=== PATIENT | female | born 1980 | race Caucasian/White ===

== ENCOUNTER 2017-12-08 14:00 | Observation (INO) | payer OTHER ==
[2017-12-08 15:47] LABS: Absolute Monocytes 0.4 K/uL (0.1-1.3); Basophils % 0.4 % (0-1.3); Eosinophils % 0.5 % (0-4.4); Hematocrit 26.4 % (36.0-45.0); Lymphocytes % 23.2 % (15.3-44.8); MCH 32.2 pg (27.0-35.0); MCV 96.3 fL (80-100); MPV 8.2 fL (7.6-11.3); Monocytes % 5.2 % (3.3-12.3); RBC Red Blood Cell Count 2.74 M/uL (3.86-4.86)
[2017-12-08 15:53] LABS: Protime INR 1.02
[2017-12-08 16:11] LABS: ALT/SGPT 20 U/L (12-78); AST/SGOT 9 U/L (15-37); Albumin 3.9 g/dL (3.4-5.0); Alkaline Phosphatase 86 U/L (45-117); Amylase Level 44 U/L (25-115); BUN Blood Urea Nitrogen 6 mg/dL (7-18); Bicarbonate 27 mmol/L (21-32); Bilirubin Direct < 0.1 mg/dL (0-0.2); Bilirubin Total 0.1 mg/dL (0.2-1.0); Glucose Level 90 mg/dL (74-106); Lipase 106 U/L (73-393); Potassium 3.6 mmol/L (3.5-5.1); Protein, Total 7.2 g/dL (6.4-8.2); Sodium Level 141 mmol/L (136-145)
[2017-12-08 16:18] LABS: Urine Blood TRACE (NEG); Urine Glucose NEGATIVE (NEG); Urine Protein NEGATIVE (NEG); Urine Specific Gravity 1.015 (1.005-1.030); Urine pH 7.5 (5.0-7.0)
[2017-12-08 16:18] LABS: Urine Bacteria <20 /HPF (<20); Urine RBC <5 /HPF (NONE SEEN)
[2017-12-08 16:19] LABS: Urine Culture Reflex Order NOT NEEDED
--- NOTE | 2017-12-08 18:02 | RAD REPORT ---
EXAM DESCRIPTION: CT - Abdomen Pelvis W Contrast - 12/08/2017 5:31 pm CLINICAL HISTORY: GI bleed;Abd pain, recent cholecystectomy COMPARISON: None. TECHNIQUE: Biphasic, helical CT imaging of the abdomen and pelvis was performed following 100 ml non -ionic IV contrast. Oral contrast was given. All CT scans are performed using dose optimization technique as appropriate and may include automated exposure control or mA/KV adjustment according to patient size. FINDINGS: No suspicious findings in the lung bases. The liver, spleen, and pancreas show no suspicious findings. Cholecystectomy clips are present. Bilia ry tree is not outside of normal limits for a post cholecystectomy patient. Symmetric renal function is seen with no hydronephrosis or suspicious renal mass. No pyelonephritis o r acute renal parenchymal process. No urinary bladder abnormality. Uterus and ovaries show no suspici ous findings. No abnormal adrenal mass. No gastric dilatation or wall thickening. Stomach is mostly decompressed. Most of the oral contrast h as reached the colon. No dilation of the large or small bowel. No acute large or small bowel finding. No free air, free fluid or inflammatory stranding. No hernia, mass or bulky lymphadenopathy. Delet e select Disc and bony degenerative change present. 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 IMPRESSION: Gallbladder is absent. No biliary tree or pancreatic abnormality identifiable. No acute GI process seen. Additional nonacute findings detailed in the body of the report.
--- NOTE | 2017-12-08 20:19 | ER ---
Nurse's Notes [facility] Name: Juani Clayton Age: 37 yrs Sex: Female : 1980 Arrival Date: 12/08/2017 Time: 14:03 Bed 14 Private MD: Out, [facility] Diagnosis: Gastrointestinal hemorrhage, unspecified Presentation: 12/08 14:04 Presenting complaint: Patient states: She had her gallbladder removed last month, They aj1 were unable to remove a stone so they did a follow up ERCP to get it after surgery, when they did the ERCP they noticed bleeding, was sent to [facility]. She had a second ERCP to recheck the bleeding and she was still having bleeding and was sent to [facility]. Since the 2nd ERCP she has been feeling weak, fatigued, palpitations, unable to tolerate activity without feeling SOB. She had labs drawn at Dr. Sim's office and they told her that her hemoglobin was 8 and she should come to the emergency room. Reports black tarry stools that are streaked with blood. Transition of care: patient was not received from another setting of care. Onset of symptoms was November 29, 2017. Risk Assessment: Do you want to hurt yourself or someone else? Patient reports no desire to harm self or others. Initial Sepsis Screen: Does the patient meet any 2 criteria? No. Patient's initial sepsis screen is negative. Does the patient have a suspected source of infection? No. Patient's initial sepsis screen is negative. Care prior to arrival: None. 14:04 Method Of Arrival: Ambulatory aj1 14:04 Acuity: RUKHSANA 3 aj1 Triage Assessment: 14:14 General: Appears in no apparent distress. uncomfortable, Behavior is calm, cooperative, aj1 appropriate for age. Pain: Complains of pain in suprapubic area, right upper quadrant and left upper quadrant Pain does not radiate. Pain currently is 5 out of 10 on a pain scale. Quality of pain is described as sharp, stinging Is intermittent. GI: Reports bloody stools Patient currently denies diarrhea, nausea, vomiting. 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 - Social history:: Smoking status: Patient/guardian denies using tobacco. - Ebola Screening: : Patient denies travel to an Ebola-affected area in the 21 days before illness onset. Screenin:30 Abuse screen: Denies threats or abuse. Denies injuries from another. Nutritional sg screening: No deficits noted. Tuberculosis screening: No symptoms or risk factors identified. Never had TB. Fall Risk None identified. Assessment: 14:30 General: Appears in no apparent distress. comfortable, well groomed, well developed, sg well nourished, Behavior is calm, cooperative, appropriate for age. Pain: Denies pain. Neuro: Reports weakness since about 8 days ago. Cardiovascular: Reports fatigue, nausea, shortness of breath, Heart tones S1 S2 present Capillary refill is brisk in bilateral fingers Patient's skin is warm and dry. Chest pain is denied. Respiratory: Airway is patent Respiratory effort is even, unlabored, Respiratory pattern is regular, symmetrical, Breath sounds are clear bilaterally. GI: Abdomen is round Bowel sounds present X 4 quads. : No signs and/or symptoms were reported regarding the genitourinary system. EENT: No signs and/or symptoms were reported regarding the EENT system. Derm: Skin is intact, is healthy with good turgor, Skin is dry, Skin is pale, Skin temperature is warm. Musculoskeletal: No signs and/or symptoms reported regarding the musculoskeletal system. 15:30 Reassessment: Patient appears in no apparent distress at this time. Patient and/or sg family updated on plan of care and expected duration. Pain level reassessed. Patient is alert, oriented x 3, equal unlabored respirations, skin warm/dry/pink. 16:30 Reassessment: Patient appears in no apparent distress at this time. Patient and/or sg family updated on plan of care and expected duration. Pain level reassessed. Patient is alert, oriented x 3, equal unlabored respirations, skin warm/dry/pink. reports feeling weak at this time, srx2, pt remains on monitors at this time. 19:03 Reassessment: Patient appears in no apparent distress at this time. Patient is alert, ak1 oriented x 3, equal unlabored respirations, skin warm/dry/pink. pt informed of wait for ERP decision to d/c or admit. Vital Signs: 14:14 BP 135 / 86; Pulse 89; Resp 18; Temp 98.7(O); Pulse Ox 99% on R/A; Weight 74.84 kg; aj1 Height 5 ft. 5 in. (165.10 cm); Pain 5/10; 20:38 BP 124 / 88; Pulse 85; Resp 16; Temp 98.6; Pulse Ox 100% on R/A; Pain 0/10; ak1 14:14 Body Mass Index 27.46 (74.84 kg, 165.10 cm) aj1 ED Course: 14:03 Patient arrived in ED. sb2 14:03 Out, [facility] is Private Physician. sb2 14:13 Triage completed. aj1 14:14 Arm band placed on Patient placed in an exam room. aj1 14:28 Vargas Tidwell, ALYSON is Primary Nurse. sg 14:30 Patient has correct armband on for positive identification. Bed in low position. Call sg light in reach. Side rails up X2. Adult w/ patient. night monitor on. Pulse ox on. NIBP on. Warm blanket given. Verbal reassurance given. Head of bed elevated. 14:56 Kilo Arellano NP is PHCP. pm1 14:57 Cristiano Conley MD is Attending Physician. pm1 15:19 Initial lab(s) drawn, by md, sent to lab. T\T\S collected, blood band applied to patient. sg Inserted saline lock: 20 gauge in right antecubital area, using aseptic technique. Blood collected. 16:[address] Scan. sg 16:39 Warm blanket given. sg 17:[address] mw3 17:31 CT Abd/Pelvis - W/Contrast In Process Unspecified. EDMS 17:31 CT completed. Patient tolerated procedure well. Patient moved back from CT. mw3 19:03 No provider procedures requiring assistance completed. ak1 20:18 Eladio Isbell MD is Hospitalizing Provider. pm1 20:38 Kaycee Jacobs, ALYSON is Primary Nurse. ak1 20:41 Patient admitted, IV remains in place. ak1 Administered Medications: No medications were administered Outcome: 20:18 Decision to Hospitalize by Provider. pm1 20:41 Condition: stable ak1 20:41 Instructed on the need for admit. 22:00 Admitted to Med/surg accompanied by tech, family with patient, via wheelchair, room ak1 207, with chart, Report called to Flora Tijerina 22:22 Patient left the ED. ak1 Signatures: Dispatcher [employer] EDMS Leticia Mayer RN RN aj1 Vargas Tidwell RN RN Kaycee Cullen RN RN ak1 Kilo Arellano, PROJECT PRODUCTION ENGINEER PROJECT PRODUCTION ENGINEER pm1 Vera Hung sb2 Silvana Islas mw3 Corrections: (The following items were deleted from the chart) 14:16 14:04 Presenting complaint: Patient states: She had her gallbladder removed last month, aj1 They were unable to remove a stone so they did a follow up ERCP to get it after surgery, when they did the ERCP they noticed bleeding, was sent to [facility]. She had a second ERCP to recheck the bleeding and she was still having bleeding and was sent to [facility]. Since the 2nd ERCP she has been feeling weak, fatigued, palpitations, unable to tolerate activity without feeling SOB. She had labs drawn at Dr. Sim's office and they told her that her hemoglobin was 8 and she should come to the emergency room aj1
--- NOTE | 2017-12-08 20:19 | EDPHYS ---
Physician Documentation [facility] Name: Juani Clayton Age: 37 yrs Sex: Female : 1980 Arrival Date: 12/08/2017 Time: 14:03 Bed 14 Private MD: Out, [facility] ED Physician Cristiano Conley HPI: 12/08 15:56 This 37 yrs old Female presents to ER via Ambulatory with complaints of pm1 Abnormal Lab Results. 15:56 Patient seen by her PCP Dr. Rakan Guzman and had labs drawn this AM. Patient pm1 contacted and told to report to the ER. Hgb 8.5. Patient with cholecystectomy on October 21, 2017 by Vargas Head MD. had a ERCP on November 24 at [facility] for possible stones in ducts. Patient with onset of GI bleeding, melena for 4 days. On November 29 patient with a second ERCP to stop the bleeding. Patient reports that she had 2 stents placed in her ducts. 3 days ago, patient reports onset of Black stool with some bright red blood on it. Onset today, patient reports palpitations, generalized weakness, and a throbbing upper abdominal pain that comes and goes. . 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 - Social history:: Smoking status: Patient/guardian denies using tobacco. - Ebola Screening: : Patient denies travel to an Ebola-affected area in the 21 days before illness onset. ROS: 16:03 Constitutional: Negative for fever, chills, and weight loss, Eyes: Negative for injury, pm1 pain, redness, and discharge, ENT: Negative for injury, pain, and discharge, Neck: Negative for injury, pain, and swelling, Cardiovascular: Negative for chest pain, palpitations, and edema, Respiratory: Negative for shortness of breath, cough, wheezing, and pleuritic chest pain. 16:03 Back: Negative for injury and pain, : Negative for injury, bleeding, discharge, and swelling, MS/Extremity: Negative for injury and deformity, Skin: Negative for injury, rash, and discoloration, Neuro: Negative for headache, weakness, numbness, tingling, and seizure. 16:03 Abdomen/GI: Positive for abdominal pain, black/tarry stool, rectal bleeding, Negative for nausea, vomiting, and diarrhea. Exam: 16:03 Constitutional: This is a well developed, well nourished patient who is awake, alert, pm1 and in no acute distress. Head/Face: Normocephalic, atraumatic. Eyes: Pupils equal round and reactive to light, extra-ocular motions intact. Lids and lashes normal. Conjunctiva and sclera are non-icteric and not injected. Cornea within normal limits. Periorbital areas with no swelling, redness, or edema. ENT: Nares patent. No nasal discharge, no septal abnormalities noted. Tympanic membranes are normal and external auditory canals are clear. Oropharynx with no redness, swelling, or masses, exudates, or evidence of obstruction, uvula midline. Mucous membranes moist. Neck: Trachea midline, no thyromegaly or masses palpated, and no cervical lymphadenopathy. Supple, full range of motion without nuchal rigidity, or vertebral point tenderness. No Meningismus. Chest/axilla: Normal chest wall appearance and motion. Nontender with no deformity. No lesions are appreciated. Cardiovascular: Regular rate and rhythm with a normal S1 and S2. No gallops, murmurs, or rubs. Normal PMI, no JVD. No pulse deficits. Respiratory: Lungs have equal breath sounds bilaterally, clear to auscultation and percussion. No rales, rhonchi or wheezes noted. No increased work of breathing, no retractions or nasal flaring. 16:03 Back: No spinal tenderness. No costovertebral tenderness. Full range of motion. Skin: Warm, dry with normal turgor. Normal color with no rashes, no lesions, and no evidence of cellulitis. MS/ Extremity: Pulses equal, no cyanosis. Neurovascular intact. Full, normal range of motion. 16:03 Abdomen/GI: Inspection: abdomen appears normal, Bowel sounds: normal, Palpation: abdomen is soft and non-tender. 16:03 Neuro: Orientation: is normal, Motor: is normal, Sensation: is normal, no obvious gross deficits. 18:10 Abdomen/GI: Rectal exam: rectal tone normal, Stool: brown, guaiac positive, pm1 hemorrhoid(s), external, without bleeding, without inflammation, without thrombosis, without pain, tenderness, is not appreciated, the exam is chaperoned by an technical sales director. Vital Signs: 14:14 BP 135 / 86; Pulse 89; Resp 18; Temp 98.7(O); Pulse Ox 99% on R/A; Weight 74.84 kg; aj1 Height 5 ft. 5 in. (165.10 cm); Pain 5/10; 20:38 BP 124 / 88; Pulse 85; Resp 16; Temp 98.6; Pulse Ox 100% on R/A; Pain 0/10; ak1 14:14 Body Mass Index 27.46 (74.84 kg, 165.10 cm) aj1 MDM: 15:13 Patient medically screened. pm1 20:00 Physician consultation: Faye Morris MD was contacted at 20:00, regarding consult, pm1 patient's condition, and will see patient tomorrow, Trend hgb and clear liquid diet. 20:17 Data reviewed: vital signs. Data interpreted: Pulse oximetry: on room air is 99 %. pm1 Interpretation: normal. Counseling: I had a detailed discussion with the patient and/or guardian regarding: the historical points, exam findings, and any diagnostic results supporting the discharge/admit diagnosis, lab results, radiology results, the need for further work-up and treatment in the hospital. 20:23 Physician consultation: Eladio Isbell MD was called at 20:23, was contacted at 20:23, pm1 regarding admission, patient's condition, and will see patient. 12/08 15:15 Order name: Amylase, Serum; Complete Time: 16:41 pm1 12/08 15:15 Order name: Basic Metabolic Panel; Complete Time: 16:41 pm1 12/08 15:15 Order name: CBC with Diff; Complete Time: 16:03 pm1 12/08 15:15 Order name: Creatinine for Radiology; Complete Time: 16:41 pm1 12/08 15:15 Order name: Hepatic Function; Complete Time: 16:41 pm1 12/08 15:15 Order name: Lipase; Complete Time: 16:41 pm1 12/08 15:15 Order name: Urine Microscopic Only; Complete Time: 16:41 pm1 12/08 15:15 Order name: Ptt, Activated; Complete Time: 16:03 pm1 12/08 15:15 Order name: PT-INR; Complete Time: 16:03 pm1 12/08 15:15 Order name: Type And Screen; Complete Time: 16:41 pm1 12/08 16:07 Order name: Urine Dipstick--Ancillary (enter results); Complete Time: 16:41 em1 12/08 16:07 Order name: Urine --Ancillary (enter results); Complete Time: 16:41 em1 12/08 16:36 Order name: ABO/RH no charge; Complete Time: 16:41 EDLA 12/08 17:46 Order name: Occult Blood--Ancillary; Complete Time: 18:05 em1 12/08 15:15 Order name: Urine Test (obtain specimen); Complete Time: 15:52 pm1 12/08 15:15 Order name: IV Saline Lock; Complete Time: 15:45 pm1 12/08 15:15 Order name: Labs collected and sent; Complete Time: 15:45 pm1 12/08 15:15 Order name: Urine Dipstick-Ancillary (obtain specimen); Complete Time: 15:52 pm1 12/08 15:15 Order name: CT Abd/Pelvis - W/Contrast; Complete Time: 18:05 pm1 Administered Medications: No medications were administered Disposition: 12/08/17 20:18 Hospitalization ordered by Eladio Isbell for Observation. Preliminary diagnosis is Gastrointestinal hemorrhage, unspecified. - Bed requested for Telemetry/MedSurg (observation). - Status is Observation. ak1 - Condition is Stable. - Problem is new. - Symptoms have improved. UTI on Admission? No Addendum: 12/10/2017 14:52 Co-signature as Attending Physician, Cristiano Conley MD I agree with the assessment and w a plan of care. Signatures: Dispatcher [employer] [facility] Leticia Mayer RN RN aj1 Cecile Cabral RN RN Kaycee Jacobs RN RN ak1 Kilo Arellano, ORGAN ASSEMBLER ORGAN ASSEMBLER pm1 Cristiano Conley MD MD wa Botello, Elizabeth eb Corrections: (The following items were deleted from the chart) 12/08 21:03 20:18 Hospitalization Ordered by Eladio Isbell MD for Observation. Preliminary mw diagnosis is Gastrointestinal hemorrhage, unspecified. Bed requested for Telemetry/MedSurg (observation). Status is Observation. Condition is Stable. Problem is new. Symptoms have improved. UTI on Admission? No. pm1 21:15 21:03 12/08/2017 20:18 Hospitalization Ordered by Eladio Isbell MD for Observation. eb Preliminary diagnosis is Gastrointestinal hemorrhage, unspecified. Bed requested for Telemetry/MedSurg (observation). Status is Observation. Condition is Stable. Problem is new. Symptoms have improved. UTI on Admission? No. mw 22:22 21:15 12/08/2017 20:18 Hospitalization Ordered by Eladio Isbell MD for Observation. ak1 Preliminary diagnosis is Gastrointestinal hemorrhage, unspecified. Bed requested for Telemetry/MedSurg (observation). Status is Observation. Condition is Stable. Problem is new. Symptoms have improved. UTI on Admission? No. eb
[2017-12-08] MEDS ORDERED: MORPHINE 2 MG/ML SYR IV PRN (21:47)
[2017-12-08] MEDS ORDERED: ONDANSETRON 4 MG/2 ML VIAL IV PRN (21:47)
[2017-12-08] MEDS ORDERED: ACETAMINOPHEN 500 MG TAB PO PRN (21:47)
[2017-12-08] MEDS: PANTOPRAZOLE INJ 80 MG in NA CHLORIDE 0.9% 250 ML IV SCH (22:00)
[2017-12-08] MEDS ORDERED: NA CHLORIDE 0.9% 250 ML IV SCH (22:00)
[2017-12-08] MEDS ORDERED: NA CHLORIDE 0.9% 250 ML ONE (23:23)
[2017-12-08] MEDS ORDERED: PANTOPRAZOLE 40 MG INJ ONE (23:23)
[2017-12-09] MEDS: NA CHLORIDE 0.9% 1,000 ML IV SCH ×2 (01:44→17:54)
--- NOTE | 2017-12-09 05:57 | P.HP ---
Certification for Inpatient Patient admitted to: Observation With expected LOS: <2 Midnights Patient will require the following post-hospital care: None Practitioner: I am a practitioner with admitting privileges, knowledge of patient current condition, hospital course, and medical plan of care. Services: Services provided to patient in accordance with Admission requirements found in Title 42 Section 412.3 of the Code of Federal Regulations Patient History Date of Service: 12/08/17 Reason for admission: Possible GI bleeding History of Present Illness: Patient is a 37-year-old female who presents to the hospital with anemia. Patient had seen her primary care provider and Ar new advice her to come to the emergency room. Patient recently had a cholecystectomy along with an ERCP. Afterwards patient had some bleeding and had to go back to the emergency room. On evaluation patient did not have any active bleeding and was discharged from the hospital. Patient has noticed melanotic stools, and she went to see her PCP. That is when he checked her hemoglobin and found it to be 8.5 and he recommended her go to the ER. Patient denies having bright red blood per rectum. She did have a guaiac stool done which shows some blood. She states that she has had heavy periods over the last 2 months. She has had GI workup performed recently and will get additional GI consultation during her hospital stay. She follows up with Dr. Sauceda at [place] for her gynecologic issues. Will get an ultrasound to evaluate her perineal organs and if this is normal then will have outpatient follow-up with her gynecologic physician. Otherwise, no active bleeding noted. Will admit her to the hospital and monitor her H&H serially. Allergies ciprofloxacin [From Cipro] Allergy (Unverified 12/08/17 22:27) Unknown diphenhydramine [From Benadryl] Allergy (Unverified 01/21/16 12:20) Unknown omeprazole Allergy (Unverified 12/08/17 22:27) Unknown Tetracyclines Allergy (Unverified 01/21/16 12:20) Unknown Tramadol HCl Allergy (Uncoded 12/08/17 22:27) Unknown - Past Medical/Surgical History Has patient received pneumonia vaccine in the past: No Diabetic: No -: hypoglycemia -: Deaf -: ERCP -: Cholecystectomy - Family History Father History Unknown: Yes Mother Medical History: Lung disease, Cancer - Social History Smoking Status: Never smoker Alcohol use: No CD- Drugs: No Caffeine use: Yes Place of Residence: Home Review of Systems 10-point ROS is otherwise unremarkable Physical Examination - Vital Signs Temperature: 97.0 F Blood Pressure: 105/62 Pulse: 78 Respirations: 18 Pulse Ox (%): 98 - Physical Exam General: Alert, In no apparent distress, Oriented x3 HEENT: Atraumatic, PERRLA, Mucous membr. moist/pink, EOMI, Sclerae nonicteric Neck: Supple, 2+ carotid pulse no bruit, No LAD, Without JVD or thyroid abnormality Respiratory: Clear to auscultation bilaterally, Normal air movement Cardiovascular: Regular rate/rhythm, Normal S1 S2, No murmurs Gastrointestinal: Normal bowel sounds, Hypoactive, Soft and benign, Non- distended, No tenderness Musculoskeletal: No clubbing, No swelling, No tenderness Integumentary: No rashes Neurological: Normal gait, Normal speech, Normal strength at 5/5 x4 extr, Normal tone, Sensation intact, Cranial nerves 3-12 intact, Normal affect Lymphatics: No axilla or inguinal lymphadenopathy - Studies Laboratory Data (last 24 hrs) 12/08/17 15:19: PT 12.0, INR 1.02, APTT 29.6 12/08/17 15:19: Creatinine 0.60 12/08/17 15:19: WBC 8.5, Hgb 8.8 L, Hct 26.4 L, Plt Count 358 12/08/17 15:19: Sodium 141, Potassium 3.6, BUN 6 L, Creatinine 0.60, Glucose 90 , Total Bilirubin 0.1 L, AST 9 L, ALT 20, Alkaline Phosphatase 86, Amylase 44, Lipase 106 Microbiology Data (last 24 hrs): 12/08/17 17:46 Stool Occult Blood - Final Assessment & Plan - Problems (Diagnosis) (1) GI bleeding Current Visit: Yes Status: Acute (2) Menorrhagia Current Visit: Yes Status: Acute (3) Acute blood loss anemia Current Visit: Yes Status: Acute (4) Status post cholecystectomy Current Visit: Yes Status: Acute - Plan Plan: 1. Continue with IV hydration and PPI drip 2. Continue with IV antibiotics 3. Continue with pain control 4. NPO 5. GI consultation 6. Serial H&H, and we will monitor LFTs and lipase along with electrolytes. 7. Transvaginal ultrasound; depending on findings will probably need outpatient gynecologic follow-up with Dr. Sauceda 8. Anemia studies 9. GI and DVT prophylaxis - Advance Directives Does patient have a Living Will: No Does patient have a Durable POA for Healthcare: No - Code Status/Comfort Care Code Status Assessed: Yes Code Status: Full Code Critical Care: No Time Spent Managing PTS Care (In Minutes): 50
[2017-12-09 07:26] LABS: Absolute Lymphocytes (CBC) 1.7 K/uL (0.7-4.9); Absolute Monocytes 0.4 K/uL (0.1-1.3); Absolute Neutrophil 2.8 K/uL (1.8-8.0); Eosinophils % 2.1 % (0-4.4); Lymphocytes % 32.7 % (15.3-44.8); MCH 32.1 pg (27.0-35.0); MCV 96.1 fL (80-100); MPV 8.3 fL (7.6-11.3); Monocytes % 8.3 % (3.3-12.3)
[2017-12-09] MEDS ORDERED: MORPHINE 4 MG/ML SYR IV PRN (07:31)
[2017-12-09 08:10] LABS: ALT/SGPT 19 U/L (12-78); AST/SGOT 13 U/L (15-37); Albumin 3.5 g/dL (3.4-5.0); Alkaline Phosphatase 64 U/L (45-117); BUN Blood Urea Nitrogen 6 mg/dL (7-18); Bicarbonate 28 mmol/L (21-32); Bilirubin Total 0.4 mg/dL (0.2-1.0); Ferritin 12.1 ng/mL (8-388); Glucose Level 92 mg/dL (74-106); Potassium 3.9 mmol/L (3.5-5.1); Protein, Total 6.5 g/dL (6.4-8.2); Sodium Level 138 mmol/L (136-145); Transferrin 198 mg/dL (200-360)
[2017-12-09 08:21] LABS: Blood Morphology Comment NOT SEEN (NOT SEEN); Platelet Estimate ADEQ
[2017-12-09] MEDS: PANTOPRAZOLE INJ 80 MG in NA CHLORIDE 0.9% 250 ML IV SCH ×4 (09:34→17:54)
--- NOTE | 2017-12-09 10:55 | RAD REPORT ---
EXAM DESCRIPTION: US - Transvaginal Study Probe - 12/09/2017 9:21 am CLINICAL HISTORY: menorrhagia Pelvic pain. COMPARISON: Abdomen Pelvis W Contrast dated 12/08/2017 FINDINGS: 10 x 9 mm subserosal fibroid anterior myometrial wall. 10 mm intramural fibroid anterior f undal region. Additional smaller fibroids are also present, subcentimeter in size. Shape of the uteru s and echotexture the uterus are preserved. The uterus measures 8.6 x 5.0 x 3.9 cm. The endometrial stripe measures 12 mm, normal. Both ovaries are normal in size, shape and echotexture. The right ovary measures 2.8 x 1.3 x 1.2 cm. The left ovary measures 2.3 x 1.8 x 1.5 cm. No ovarian or parovarian lesions. No adnexal masses. Normal Doppler blood flow was demonstrated to both ovaries. No significant pelvic ascites. IMPRESSION: Mildly leiomyomatous uterus as detailed above.
--- NOTE | 2017-12-09 13:08 | P.PN ---
Subjective Date of Service: 12/09/17 Chief Complaint: Possible GI bleeding Pt seen and examined at bedside. Doing well overall. Case DW with GI. pt states she has not seen any more bleeding but also has not had a BM to tell us Correctly. Pt states she is hungry and would like to eat. GI consult is pending at this time Review of Systems General: As per HPI Physical Examination - Vital Signs Temperature: 99.1 F Blood Pressure: 99/57 Pulse: 85 Respirations: 20 Pulse Ox (%): 100 - Physical Exam General: Alert, In no apparent distress HEENT: Atraumatic, PERRLA, EOMI Neck: Supple, JVD not distended Respiratory: Clear to auscultation bilaterally, Normal air movement Cardiovascular: Regular rate/rhythm, Normal S1 S2 Gastrointestinal: Normal bowel sounds, No tenderness Musculoskeletal: No tenderness Integumentary: No rashes Neurological: Normal speech, Normal tone, Normal affect Lymphatics: No axilla or inguinal lymphadenopathy - Studies Laboratory Data (last 24 hrs) 12/08/17 15:19: PT 12.0, INR 1.02, APTT 29.6 12/08/17 15:19: Creatinine 0.60 12/08/17 15:19: WBC 8.5, Hgb 8.8 L, Hct 26.4 L, Plt Count 358 12/08/17 15:19: Sodium 141, Potassium 3.6, BUN 6 L, Creatinine 0.60, Glucose 90 , Total Bilirubin 0.1 L, AST 9 L, ALT 20, Alkaline Phosphatase 86, Amylase 44, Lipase 106 Microbiology Data (last 24 hrs): 12/08/17 17:46 Stool Occult Blood - Final Medications List Reviewed: Yes Assessment & Plan - Problems (Diagnosis) (1) Acute blood loss anemia Onset Date: 12/09/17 Current Visit: Yes Status: Acute Plan: Acute Blood loss anemia. Most Likely 2.2 to Menorrhagia vs GI bleeding. -Pt was recently Discharged from [place] after Cholecystomy and ERCP. Pt was noted to have Low hgb after surgery and was taken back to OR and no Active bleeding was noted. Pt was then Discharge home to [facility] with PCP. When pt went to PCP her hgb was 8.5 and was sent to the hospital for further care. -GI consulted. Reccs awaiting -On IV protonix ggt and IV fluids -TV US consistent with Leiomyomatous Uterus. Currently no Active Vaginal Bleeding noted. -Will awaiting GI reccs (2) Menorrhagia Onset Date: 12/09/17 Current Visit: Yes Status: Acute Plan: -TV US consistent with Leiomyomatous Uterus. Currently no Active Vaginal Bleeding noted. -Will need OP f.u with CERTIFIED SURGICAL ASSISTANT to address this as a possible reason for Anemia Qualifiers: Menorrahagia type: with irregular cycle Qualified Code(s): N92.1 - Excessive and frequent menstruation with irregular cycle (3) Status post cholecystectomy Onset Date: 12/09/17 Current Visit: Yes Status: Chronic Discharge Plan: Home Plan to discharge in: 24 Hours - Code Status/Comfort Care Code Status Assessed: Yes Critical Care: No
[2017-12-09 13:33] LABS: Absolute Lymphocytes (CBC) 1.9 K/uL (0.7-4.9); Absolute Monocytes 0.3 K/uL (0.1-1.3); Absolute Neutrophil 3.9 K/uL (1.8-8.0); Basophils % 0.5 % (0-1.3); Eosinophils % 1.1 % (0-4.4); Hematocrit 25.2 % (36.0-45.0); Lymphocytes % 30.2 % (15.3-44.8); MCH 31.2 pg (27.0-35.0); MCV 95.8 fL (80-100); MPV 8.2 fL (7.6-11.3); Monocytes % 5.4 % (3.3-12.3); RBC Red Blood Cell Count 2.63 M/uL (3.86-4.86)
[2017-12-10] MEDS: NA CHLORIDE 0.9% 1,000 ML IV SCH (02:14)
[2017-12-10] MEDS: PANTOPRAZOLE INJ 80 MG in NA CHLORIDE 0.9% 250 ML IV SCH (04:54)
--- NOTE | 2017-12-10 11:15 | EKG ---
Test Date: 2017-12-09 Test Time: 22:08:42 Respooler: VIVIANE MEASUREMENT RESULTS: Intervals: Rate: 61 ND: 152 QRSD: 84 QT: 430 QTc: 432 [place]: P: 50 ND: 152 QRS: 50 T: 45 INTERPRETIVE STATEMENTS: Normal sinus rhythm with sinus arrhythmia Normal ECG Compared to ECG 05/11/2009 07:25:58 No significant changes Electronically Signed On 12-10-17 11:15:24 CDT by Ahmet Driscoll
[2017-12-10 13:21] LABS: Absolute Lymphocytes (CBC) 1.6 K/uL (0.7-4.9); Absolute Monocytes 0.4 K/uL (0.1-1.3); Absolute Neutrophil 4.1 K/uL (1.8-8.0); Basophils % 0.7 % (0-1.3); Eosinophils % 1.7 % (0-4.4); Hematocrit 26.5 % (36.0-45.0); Lymphocytes % 25.8 % (15.3-44.8); MCH 31.3 pg (27.0-35.0); MCV 96.4 fL (80-100); MPV 7.7 fL (7.6-11.3); Monocytes % 5.9 % (3.3-12.3); RBC Red Blood Cell Count 2.75 M/uL (3.86-4.86)
--- NOTE | 2017-12-10 15:04 | P.SSS ---
Patient History Date of Service: 12/10/17 Primary Care Provider: BAIRON Reason for admission: Possible GI bleeding History of Present Illness: See HPI Allergies ciprofloxacin [From Cipro] Allergy (Unverified 12/08/17 22:27) Unknown diphenhydramine [From Benadryl] Allergy (Unverified 01/21/16 12:20) Unknown omeprazole Allergy (Unverified 12/08/17 22:27) Unknown Tetracyclines Allergy (Unverified 01/21/16 12:20) Unknown Tramadol HCl Allergy (Uncoded 12/08/17 22:27) Unknown - Past Medical/Surgical History Has patient received pneumonia vaccine in the past: No Diabetic: No -: hypoglycemia -: Deaf -: ERCP -: Cholecystectomy - Family History Father History Unknown: Yes Mother -: Lung disease, Cancer - Social History Smoking Status: Never smoker Alcohol use: No CD- Drugs: No Caffeine use: Yes Place of Residence: Home Review of Systems General: As per HPI Physical Examination - Vital Signs Temperature: 97.5 F Blood Pressure: 124/69 Pulse: 70 Respirations: 16 Pulse Ox (%): 100 - Physical Exam General: Alert, In no apparent distress, Oriented x3 HEENT: Atraumatic, PERRLA, Mucous membr. moist/pink, EOMI, Sclerae nonicteric Neck: Supple, 2+ carotid pulse no bruit, No LAD, Without JVD or thyroid abnormality Respiratory: Clear to auscultation bilaterally, Normal air movement Cardiovascular: Regular rate/rhythm, Normal S1 S2 Gastrointestinal: Normal bowel sounds, No tenderness Musculoskeletal: No tenderness Integumentary: No rashes Neurological: Normal gait, Normal speech, Normal strength at 5/5 x4 extr, Normal tone, Normal affect Lymphatics: No axilla or inguinal lymphadenopathy - Diagnosis (Problem(s)) (1) Acute blood loss anemia Onset Date: 12/09/17 Current Visit: Yes Status: Acute Plan: Acute Blood loss anemia. Most Likely 2.2 to Menorrhagia and Hemorrhoids. -Pt was recently Discharged from [place] after Cholecystomy and ERCP. Pt was noted to have Low hgb after surgery and was taken back to OR and no Active bleeding was noted. Pt was then Discharge home to [facility] with PCP. When pt went to PCP her hgb was 8.5 and was sent to the hospital for further care. here in the hospital Pt remained stable. No acute blood loss noted. Stool was negative for occult blood. No vaginal bleeding noted. GI consulted. Reccs to monitor h/h for 24hr which remained stable. TV Us was consistent with Leiomyomatous utreus and outpt f.u with PHONE BANKER reccomended. Since pt had stable h/h and no further acute bleeding was discharge home under stable condition. -Educated on High fiber and Iron rich diet. -F/U with PCP, GI and Condenser Setter in 1 week post discharge. (2) Menorrhagia Onset Date: 12/09/17 Current Visit: Yes Status: Acute Plan: -TV US consistent with Leiomyomatous Uterus. Currently no Active Vaginal Bleeding noted. -OP f.u with PHONE BANKER Qualifiers: Menorrahagia type: with irregular cycle Qualified Code(s): N92.1 - Excessive and frequent menstruation with irregular cycle (3) Status post cholecystectomy Onset Date: 12/09/17 Current Visit: Yes Status: Chronic Treatment Summary: Pt was recently Discharged from [place] after Cholecystomy and ERCP. Pt was noted to have Low hgb after surgery and was taken back to OR and no Active bleeding was noted. Pt was then Discharge home to f.u with PCP. When pt went to PCP her hgb was 8.5 and was sent to the hospital for further care. here in the hospital Pt remained stable. No acute blood loss noted. Stool was negative for occult blood. No vaginal bleeding noted. GI consulted. Reccs to monitor h/h for 24hr which remained stable. TV Us was consistent with Leiomyomatous utreus and outpt f.u with PHONE BANKER reccomended. Since pt had stable h/h and no further acute bleeding was discharge home under stable condition. Educated on High fiber and Iron rich diet. F/U with PCP, GI and Condenser Setter in 1 week post discharge. - Disposition Disposition: ROUTINE DISCHARGE Condition: GOOD Patient Discharge Instructions: Please f.u with PCP in 1 to 2 week post discharge. Please f.u with GI in 1 to 2 week post discharge. No new medication. Diet high in IRON Diet: Regular Activity: Ad felice
== END 2017-12-10 15:30 | disposition home or self-care (01) ==
LOC: ER 14:00 → ERHOLD 20:25 → 2ND 22:05
PROVIDERS: ADMIT Hospitalist; ATTEND Hospitalist
DX: D62 Acute posthemorrhagic anemia (principal); N92.0 Excessive and frequent menstruation with regular cycle; H91.90 Unspecified hearing loss, unspecified ear; Z90.49 Acquired absence of other specified parts of digestive tract; Z88.0 Allergy status to penicillin
CPT/HCPCS: 36415; 74177; 76830; 80048; 80053; 80076; 81003; 81015; 81025; 82150; 82272; 82607; 82728; 82747; 83540; 83690; 84466; 85014; 85018; 85025; 85044; 85610; 85730; 86850; 86900; 86901; 93005; 99285; C9113; G0378; J2270; J7030; Q9967